=== PATIENT | male | born 1970 | race Caucasian/White ===

== ENCOUNTER 2018-07-30 05:22 | Day surgery (SDC) | payer OTHER ==
[~2018-07-30] VITALS: Ht 182.9 cm; Wt 91.1 kg
[2018-07-30] MEDS ORDERED: LACTATED RINGERS 1,000 ML IV SCH (05:51)
[2018-07-30] MEDS ORDERED: AMPH15TA PO (05:52)
[2018-07-30] MEDS ORDERED: BUPR150T73 PO (05:52)
[2018-07-30] MEDS ORDERED: ATOR40TA78 PO (05:52)
[2018-07-30 05:53] VITALS: BP 138/78
[2018-07-30] MEDS ORDERED: LIDOCAINE/PF 1%-EPI 1:200K, 30 ML ONE (06:08)
[2018-07-30] MEDS ORDERED: LIDOCAINE 1%-EPI 1:100K, 30ML ONE (06:10)
[2018-07-30] MEDS ORDERED: BUPIVACAINE/PF-EPI 0.5% 1:200K ONE (06:23)
[2018-07-30] MEDS ORDERED: ROCURONIUM 10MG/ML,5ML ONE (06:26)
[2018-07-30] MEDS ORDERED: BUPIVACAINE/PF 0.5% ONE (06:26)
[2018-07-30] MEDS ORDERED: PROPOFOL 10 MG/ML, 20ML ONE (06:26)
[2018-07-30] MEDS ORDERED: MIDAZOLAM 1 MG/ML, 2ML ONE (06:31)
[2018-07-30] MEDS ORDERED: FENTANYL PF 100 MCG/2ML ONE (06:31)
[2018-07-30] MEDS ORDERED: CEFAZOLIN 1,000 MG ONE ×2 (06:46)
[2018-07-30] MEDS ORDERED: GLYCOPYRROLATE 0.2MG/1ML, 5ML ONE (06:52)
[2018-07-30] MEDS ORDERED: NEOSTIGMINE 1 MG/ML, 10ML ONE (06:52)
[2018-07-30] MEDS ORDERED: ONDANSETRON 2MG/ML, 2ML ONE (06:52)
[2018-07-30] MEDS ORDERED: DEXAMETHASONE 4 MG/ML, 1ML ONE (06:52)
[2018-07-30] MEDS ORDERED: ONDANSETRON 2MG/ML, 2ML IV PRN (07:00)
[2018-07-30] MEDS ORDERED: LABETALOL 5MG/ML, 20ML IV PRN (07:00)
[2018-07-30] MEDS ORDERED: MEPERIDINE/PF 25MG/0.5ML IVPush PRN (07:00)
[2018-07-30] MEDS ORDERED: OXYcodone 5 MG/5 ML ORAL.SOL UDC PO PRN (07:00)
[2018-07-30] MEDS ORDERED: FENTANYL PF 100 MCG/2ML IV PRN (07:00)
[2018-07-30] MEDS ORDERED: PROMETHAZINE 25 MG/ML, 1ML IV PRN (07:00)
[2018-07-30] MEDS ORDERED: ALBUTEROL SULFATE 2.5 MG/3 ML NPPB PRN (07:00)
[2018-07-30] MEDS ORDERED: EPHEDRINE 50 MG/ML, 1ML IVPush PRN (07:00)
[2018-07-30] MEDS ORDERED: ACETAMINOPHEN 325 MG TABLET PO PRN (07:00)
[2018-07-30] MEDS ORDERED: HYDROmorphone 1 MG/ML, 1ML IV PRN (07:00)
[2018-07-30] MEDS ORDERED: hydrALAzine 20 MG/ML, 1ML IV PRN (07:00)
[2018-07-30] MEDS ORDERED: METOPROLOL 1 MG/ML, 5ML IV PRN (07:00)
[2018-07-30] MEDS ORDERED: GLYCOPYRROLATE 0.4 MG/2 ML, 2ML ONE (08:28)
[2018-07-30] MEDS ORDERED: OXYcodone 5 MG/5 ML ORAL.SOL UDC ONE (08:47)
[2018-07-30] MEDS ORDERED: BUPROPION SR 150 MG TABLET PO SCH (09:00)
[2018-07-30] MEDS ORDERED: ATORVASTATIN 40 MG TABLET PO SCH (21:00)
== END 2018-07-30 11:45 | disposition home or self-care (01) ==
LOC: OUT 05:22
PROVIDERS: ATTEND Orthopaedic Surgery
DX: M75.111 Incomplete rotator cuff tear or rupture of right shoulder, not specified as traumatic (principal); M24.111 Other articular cartilage disorders, right shoulder; M75.41 Impingement syndrome of right shoulder; M19.011 Primary osteoarthritis, right shoulder; Z72.89 Other problems related to lifestyle
CPT/HCPCS: 29823; 29824; 29826; 29827; 64415; C1713; J0690; J1100; J2250; J2405; J2704; J2710; J3010; J3490; J7120

== ENCOUNTER 2019-05-22 14:18 | Emergency (ER) | payer OTHER ==
[~2019-05-22] VITALS: Ht 182.9 cm; Wt 91.0 kg
[~2019-05-22 14:18] MED LIST: AMPH15TA PO; ATOR40TA78 PO; BUPR150T73 PO
[2019-05-22 14:26] VITALS: BP 129/79
[2019-05-22] MEDS ORDERED: DIAZEPAM 5 MG TABLET ONE (14:55)
[2019-05-22] MEDS ORDERED: KETOROLAC 30 MG/1 ML ONE (14:55)
[2019-05-22] MEDS ORDERED: KETOROLAC 30 MG/1 ML IM ONE (15:00)
[2019-05-22] MEDS ORDERED: DIAZEPAM 5 MG TABLET PO ONE (15:00)
--- NOTE | 2019-05-22 15:15 | NUR ---
Pt medicated as ordered. States he is feeling better with medications and buddy wrap. Crutch use demo performed, and pt taken to DC desk, ambulatory with crutches. Family at bedside to drive patient home.
== END 2019-05-22 15:18 | disposition home or self-care (01) ==
LOC: ED 15:07
DX: S86.912A Strain of unspecified muscle(s) and tendon(s) at lower leg level, left leg, initial encounter (principal); X50.1XXA Overexertion from prolonged static or awkward postures, initial encounter; Y93.89 Activity, other specified; Y92.488 Other paved roadways as the place of occurrence of the external cause; Y99.8 Other external cause status
CPT/HCPCS: 96372; 99283; J1885

== ENCOUNTER → 2020-04-12 | Outpatient (CLI) | payer OTHER | END | disposition home or self-care (01) | LOC: CFH 13:06 | PROVIDERS: ATTEND Internal Medicine Cardiovascular Disease | DX: I25.10 Atherosclerotic heart disease of native coronary artery without angina pectoris (principal); E78.2 Mixed hyperlipidemia | CPT/HCPCS: 75571 ==